=== PATIENT | male | born 1965 | race Caucasian/White ===

== ENCOUNTER → 2023-05-23 | Outpatient (CLI) | payer BC ==
--- NOTE | 2023-05-23 11:58 | CT ---
EXAMINATION TYPE: CT urogram wo/w con DATE OF EXAM: 05/23/2023 COMPARISON: HISTORY: heamturia x6 years CT DLP: 3160.9 mGycm CONTRAST: Performed and with IV Contrast, patient injected with 100 mL of Isovue 370. CT Urography was performed with unenhanced followed by enhanced images of the kidneys, ureters and ur inary bladder. Delayed images were obtained. 3d reconstruction was perfromed at a separate work sta tion. FINDINGS: KIDNEYS/BLADDER: No nephrolithiasis. No distinct renal mass. There is thickening and diminutive uri nary bladder which could reflect chronic infection however underlying neoplasm is not excluded. Wall thickening is greatest at the level of the left UVJ with resultant mild left-sided hydronephrosis. Di rect visualization is advised. LUNG BASES-: No visible nodule. No infiltrate. Small hiatal hernia noted. LIVER/GB: No calcified gallstones. No space occupying hepatic lesion. Biliary tree is of normal ca liber. PANCREAS: No inflammation. No distinct mass. SPLEEN: No splenic enlargement. No lesion seen. ADRENALS: No nodule. No thickening. BOWEL: Normal appendix. Normal bowel caliber. No inflammation. GENITAL ORGANS: No gross abnormality. LYMPH NODES: No greater than 1cm abdominal or pelvic lymph nodes are appreciated. AORTA: No significant abnormality. OSSEOUS STRUCTURES: No significant abnormality is seen. OTHER: No significant additional abnormality is seen. IMPRESSION: 1. There is thickening and diminutive urinary bladder which could reflect chronic infection however underlying neoplasm is not excluded. Wall thickening is greatest at the level of the left UVJ with r esultant mild left-sided hydronephrosis. Direct visualization is advised.
== END | disposition home or self-care (01) ==
LOC: RADCTMAIN 08:57
PROVIDERS: ATTEND Urology
DX: N13.30 Unspecified hydronephrosis (principal); N32.89 Other specified disorders of bladder; R31.0 Gross hematuria
CPT/HCPCS: 74178; 74400; Q9967

== ENCOUNTER → 2023-06-16 | Outpatient (CLI) | payer BC | END | disposition home or self-care (01) | LOC: LABWHC1 10:22 | PROVIDERS: ATTEND Urology | DX: I23.1 Atrial septal defect as current complication following acute myocardial infarction (principal); R94.31 Abnormal electrocardiogram [ECG] [EKG] | CPT/HCPCS: 36415; 93005 ==

== ENCOUNTER 2023-06-20 12:09 | Day surgery (SDC) | payer BC ==
--- NOTE | 2023-06-20 10:04 | P.HPIHPCON ---
History of Present Illness H&P Date: 06/20/23 Chief Complaint: Bladder mass, hydronephrosis This is a 57-year-old male with history of gross hematuria. Underwent a CT urogram that showed evidence of a bladder mass with left-sided hydronephrosis. Underwent a cystoscopy which confirmed the finding of a large bladder mass. Discussed with him given this finding I recommend proceeding with a transurethral resection of bladder tumor and a possible left stent insertion. Aware of the risk which includes but not limited to bleeding, infection, bladder perforation. Discussed also if I'm not able to Visualize the Ureteral Orifice and at That Time I will not be able to place a stent. Risk of anesthesia was also discussed. He understood all the risk and agreed to proceed with a Transuretheral resection of a bladder tumor with a left stent insertion Consent for Procedure: I have explained the operation/procedure to the patient, including the risks, benefits, side effects, alternative therapies (including not receiving the proposed treatment or service), the likelihood of the patient achieving his/her goals, and potential recuperation problems for the procedure/sedation/analgesia, as well as any blood products, if indicated. I also explained to the patient the risks, benefits and side effects of the alternatives, as well as the risks related to not receiving the proposed procedure, care, treatment, or services. Past Medical History Past Medical History: GERD/Reflux, Sleep Apnea/CPAP/BIPAP Additional Past Medical History / Comment(s): bladder tumor, issues urinating and blood in urine. BP is good takes BP meds for night terrors. does not wear cpap History of Any Multi-Drug Resistant Organisms: None Reported Past Surgical History: No Surgical Hx Reported Past Anesthesia/Blood Transfusion Reactions: No Reported Reaction Smoking Status: Current every day smoker - Past Family History Mother Family Medical History: AFIB Father Family Medical History: Cancer Additional Family Medical History / Comment(s): colon cancer, prostate, skin. Medications and Allergies Home Medications Medication Instructions Recorded Confirmed Type Glucosam/Chond/Hyalu/Cf Borate 1 each PO DAILY 06/15/23 06/15/23 History [Move Free Joint Health Tablet] Ibuprofen [Motrin Ib] 400 mg PO DIRECTED PRN 06/15/23 06/15/23 History Mv-Min/Folic/K1/Lycopen/Lutein 1 each PO DAILY 06/15/23 06/15/23 History [Centrum Silver Men Tablet] Omeprazole 20 mg PO DAILY 06/15/23 06/15/23 History Prazosin [Minipress] 1 mg PO DAILY 06/15/23 06/15/23 History Propranolol [Inderal] 40 mg PO DAILY 06/15/23 06/15/23 History Sertraline [Zoloft] 100 mg PO DAILY 06/15/23 06/15/23 History Unk Azo Cranberry 1 tab PO DAILY 06/15/23 06/15/23 History Allergies Allergy/AdvReac Type Severity Reaction Status Date / Time No Known Allergies Allergy Verified 06/15/23 09:56 Surgical - Exam - General no distress, no pain - Eyes normal ocular movement, no pale - ENT normal nares, normal mucosa - Respiratory normal expansion, normal respiratory effort - Abdomen Abdomen: soft, non tender Assessment and Plan Assessment: OR for TURBT with left stent insertion
[~2023-06-20 12:09] MED LIST: HYDROmorphone 0.5 MG/0.5 ML SYRINGE IVP PRN; LACTATED RINGERS 1,000 ML IV SCH; LIDOCAINE 1% (10MG/ML) FOR IV START INTRADERMA PRN; MIDAZOLAM 2 MG/2 ML VIAL IV PRN
[2023-06-20 13:41] VITALS: RESP 16; TEMP 96.7
[2023-06-20] MEDS ORDERED: ONDANSETRON 4 MG/2 ML VIAL ONE (13:47)
[2023-06-20] MEDS ORDERED: LACTATED RINGERS 1,000 ML IV ONE ×2 (13:49→18:30)
[2023-06-20] MEDS ORDERED: ONDANSETRON 4 MG/2 ML VIAL IVP ONE (13:49)
[2023-06-20] MEDS ORDERED: DEXAMETHASONE SOD PHOSPHATE 4 MG/ML 1 ML VIAL IVP ONE (13:50)
[2023-06-20] MEDS ORDERED: NEOSTIGMINE 1 MG/ML 10 ML VIAL ONE (17:27)
[2023-06-20] MEDS ORDERED: fentaNYL (PF) 50 MCG/ML 2 ML AMP ONE (17:27)
[2023-06-20] MEDS ORDERED: MIDAZOLAM 2 MG/2 ML VIAL ONE (17:27)
[2023-06-20] MEDS ORDERED: HYDROmorphone (PF) 1 MG/ML ONE (17:27)
[2023-06-20] MEDS ORDERED: ROCURONIUM 10 MG/ML (5 ML VIAL) IV ONE (17:27)
[2023-06-20] MEDS ORDERED: LIDOCAINE 1% INJ 10MG/ML (20 ML MDV) ONE (17:27)
[2023-06-20] MEDS ORDERED: SUCCINYLCHOLINE CHLORIDE 200 MG/10 ML VIAL IV ONE (17:27)
[2023-06-20] MEDS ORDERED: PROPOFOL 10 MG/ML 20 ML VIAL IV ONE (17:27)
[2023-06-20] MEDS ORDERED: GLYCOPYRROLATE 0.2 MG/ML 2 ML VIAL ONE (17:27)
[2023-06-20] MEDS ORDERED: IOPAMIDOL-370 100ML BTL MISCELLANE ONE (18:16)
--- NOTE | 2023-06-20 18:39 | P.OP ---
Date of Procedure: 06/20/23 Preoperative Diagnosis: Bladder mass, left hydronephrosis Postoperative Diagnosis: Same Procedure(s) Performed: Cystoscopy, TURBT (large) left retrograde pyelogram and stent insertion Implants: 6 Fr X 26 cm stent in the left ureter Anesthesia: ALONDRA Surgeon: Jsaon Yao Estimated Blood Loss (ml): 25 Pathology: other (Bladder mass) Condition: stable Disposition: PACU Indications for Procedure: This is a 57-year-old male with history of gross hematuria. Underwent a CT urogram that showed evidence of a bladder mass with left-sided hydronephrosis. Underwent a cystoscopy which confirmed the finding of a large bladder mass. Discussed with him given this finding I recommend proceeding with a transurethral resection of bladder tumor and a possible left stent insertion. Aware of the risk which includes but not limited to bleeding, infection, bladder perforation. Discussed also if I'm not able to Visualize the Ureteral Orifice and at That Time I will not be able to place a stent. Risk of anesthesia was also discussed. He understood all the risk and agreed to proceed with a Transuretheral resection of a bladder tumor with a left stent insertion Operative Findings: 6 cm bladder mass involving the trigone extending to the left lateral wall, an additional 3 cm satellite lesion along the posterior dome. Significant left- sided hydroureteronephrosis Description of Procedure: Patient brought to the operating room, general anesthesia was induced. He was prepped and draped in sterile fashion and placed in dorsal lithotomy position. Resectoscope fitted 25-Irish sheath was inserted per urethra, cystoscopy was performed which showed a large mass involving the left trigone extending to the left lateral wall, an additional 3 cm satellite lesion along the posterior bladder wall. The right ureteral orifice was visualized, the left ureteral orifice was completely covered with tumor. using the bipolar resectoscope the tumor was resected down to muscle, the area of resection was thoroughly fulgurated. All tumor specimen was irrigated out. Total area of resection was 6 cm long the left lateral wall and 3 cm along the posterior dom. There was no evidence of bladder perforation or evidence of bleeding, there is also no residual tumor was visualized. At this time the resectoscope was withdrawn and a cystoscope fitted with 22-Irish sheath was inserted per urethra, I was able to visualize the left ureteral orifice which was intubated with an open-ended catheter, at this point a hydronephrotic drip was seen from the left ureteral orifice. Next retrograde pyelogram was performed which showed no filling defect was seen along the course of the ureter. There was significant left hydroureteronephrosis. This time a sensor wire was advanced through the catheter the catheter was removed with the wire in place. Next a ureteral stent was passed over the wire, the proximal curl was visualized on fluoroscopy and the distal curl was visualized using the cystoscope. The bladder was emptied and into the case. A 22-Irish Ruano was placed with return of clear urine. Patient tolerated the procedure was taken recovery in stable condition
[2023-06-20 19:49] VITALS: BP 124/73; PULSE 73
--- NOTE | 2023-06-21 00:17 | FL ---
EXAMINATION TYPE: FL urography retrograde DATE OF EXAM: 06/20/2023 COMPARISON: CT urogram May 23, 2023 HISTORY: Bladder mass and hydronephrosis TECHNIQUE: Fluoroscopy. FINDINGS: Fluoroscopic guidance was provided during left sided ureter stent insertion procedure perf ormed by Dr. Yao. A total of 7.1 seconds of fluoroscopic time was utilized during the procedure a nd 6 spot images was acquired. Total dose area product (DAP) in uGy*m?, mGy*cm? (or similar): 0.0087 18. IMPRESSION: As Above.
== END 2023-06-20 19:58 | disposition home or self-care (01) ==
LOC: OR 12:09
PROVIDERS: ATTEND Urology
DX: N32.9 Bladder disorder, unspecified (principal); N13.30 Unspecified hydronephrosis; K21.9 Gastro-esophageal reflux disease without esophagitis; G47.33 Obstructive sleep apnea (adult) (pediatric); F17.200 Nicotine dependence, unspecified, uncomplicated; Z82.49 Family history of ischemic heart disease and other diseases of the circulatory system; Z80.0 Family history of malignant neoplasm of digestive organs; Z79.899 Other long term (current) drug therapy
CPT/HCPCS: 74420; 52240; 52332; C2625; C1758; C1769; J2250; J0330; J1100; J2710; J0690; J2405; J2001; J3010; J1170 ×2; J2704; Q9967; 88307

== ENCOUNTER → 2023-07-07 | Outpatient (CLI) | payer BC ==
--- NOTE | 2023-07-07 15:05 | NM ---
EXAMINATION TYPE: NM bone scan whole body DATE OF EXAM: 07/07/2023 COMPARISON: CT urogram 05/23/2023 CLINICAL INDICATION: Male, 57 years old with history of C67.9 bladder ca; Delayed whole-body scanning was performed following the injection of 23.6 mCi Tc 99m MDP. Images acq uired 3 hours post injection. FINDINGS: No abnormal uptake is identified within the appendicular or axial skeleton to suggest metastatic dise ase. There is increased uptake within the bilateral shoulder, sternoclavicular, and feet consistent with d egenerative changes. No other photopenic areas or areas of increased activity are identified. Physiologic radiotracer activity is demonstrated in the kidneys and bladder. Mild to moderate left hy droureteronephrosis identified. Radiotracer is identified throughout the left ureter. IMPRESSION: 1. Nothing to suggest metastatic disease. 2. Mild to moderate left hydroureteronephrosis corresponding to prior CT.
== END | disposition home or self-care (01) ==
LOC: RADNMMAIN 10:12
PROVIDERS: ATTEND Urology
DX: C67.9 Malignant neoplasm of bladder, unspecified (principal); N13.30 Unspecified hydronephrosis
CPT/HCPCS: 78306; A9503

== ENCOUNTER → 2023-07-25 | Outpatient (CLI) | payer BC ==
--- NOTE | 2023-07-25 12:09 | XR ---
EXAMINATION TYPE: XR KUB DATE OF EXAM: 07/25/2023 COMPARISON: NONE HISTORY: Stent placement TECHNIQUE: One view abdominal series FINDINGS: The osseous structures are intact. The bowel gas pattern is nonspecific. Lung bases are clear. Left -sided double-J ureteral stent. Hypertrophic and degenerative changes in the spine. No suspicious georgette cifications noted overlying the renal outline bilaterally. No definite suspicious calcification overl esau the stent. Area of linear hyperdensity in the view of the pelvis could represent tiny bladder ca lculi IMPRESSION: 1. Left-sided double-J ureteral stent.
== END | disposition home or self-care (01) ==
LOC: RADXRMAIN 11:35
PROVIDERS: ATTEND Urology
DX: R31.0 Gross hematuria (principal); Z96.0 Presence of urogenital implants
CPT/HCPCS: 74018